=== PATIENT | female | born 1980 | race Caucasian/White ===

== ENCOUNTER → 2016-07-01 | Outpatient (CLI) | payer MEDICAID ==
--- NOTE | 2016-07-01 23:09 | MR ---
EXAMINATION TYPE: MR hip RT wo con DATE OF EXAM: 07/01/2016 4:38 PM COMPARISON: NONE HISTORY: Rt hip pain S/P fall 4 years ago Standard multiplanar, multisequence MRI departmental protocol Multiplanar, multisequence images of the were acquired. Diffusion weighted imaging was performed. FINDINGS: The proximal femurs are intact. Acetabula appear intact. I see no focal bony destructive pr ocess. There is no evidence of a pelvic mass. The hip joint spaces are fairly well-maintained. There is no sign of hip joint effusion. IMPRESSION: Negative MR scan of the right hip. No evidence of hip dysplasia or any significant arthritic disease. No sign of avascular necrosis.
--- NOTE | 2016-07-02 12:04 | ECHOF ---
Referral Reason:Dyspnea R06.00, M25.551 Pain in right hip joint MEASUREMENTS -------- HEIGHT: 177.8 cm WEIGHT: 72.6 kg BP: IVSd: 1.0 cm (0.6 - 1.1) LVIDd: 5.4 cm (3.9 - 5.3) LVPWd: 0.9 cm (0.6 - 1.1) IVSs: 1.3 cm LVIDs: 3.5 cm LVPWs: 1.6 cm Ao Diam: 3.0 cm (2.0 - 3.7) AV Cusp: 2.0 cm (1.5 - 2.6) LA Diam: 3.2 cm (2.7 - 3.8) MV EXCURSION: 18.395 mm (> 18.000) MV EF SLOPE: 118 mm/s (70 - 150) EPSS: 0.5 cm MV E Ernie: 0.94 m/s MV DecT: 240 ms MV A Ernie: 0.70 m/s MV E/A Ratio: 1.35 RAP: 5.00 mmHg RVSP: 11.84 mmHg FINDINGS -------- Sinus rhythm. This was a technically good study. Left ventricular wall thickness is normal. Overall left ventricular systolic function is normal with, an EF between 55 - 60 %. The right ventricle is normal in size and function. The left atrium is normal in size. The right atrium is normal in size. The aortic valve is trileaflet, and appears structurally normal. No aortic stenosis or regurgitation. Mild mitral regurgitation is present. Mild tricuspid regurgitation present. The right ventricular systolic pressure, as measured by Doppler, is 11.84mmHg. Pulmonic valve appears structurally normal. The aortic root, ascending aorta and aortic arch are normal. The pericardium is normal. CONCLUSIONS -------- 1. Sinus rhythm. 2. Mild tricuspid regurgitation present. 3. The right ventricular systolic pressure, as measured by Doppler, is 11.84mmHg. 4. Pulmonic valve appears structurally normal. 5. The aortic root, ascending aorta and aortic arch are normal. 6. The pericardium is normal. 7. This was a technically good study. 8. Left ventricular wall thickness is normal. 9. Overall left ventricular systolic function is normal with, an EF between 55 - 60 %. 10. The right ventricle is normal in size and function. 11. The left atrium is normal in size. 12. The right atrium is normal in size. 13. The aortic valve is trileaflet, and appears structurally normal. No aortic stenosis or regurgitation. 14. Mild mitral regurgitation is present. JAZZ SINGER: Jen Martinez RDCS
== END | disposition home or self-care (01) ==
LOC: RADECHMAIN 14:47
PROVIDERS: ATTEND Family Medicine
DX: I08.1 Rheumatic disorders of both mitral and tricuspid valves (principal); M25.551 Pain in right hip
CPT/HCPCS: 93306

== ENCOUNTER → 2016-11-30 | Outpatient (CLI) | payer MEDICAID ==
[2016-11-30 15:32] LABS: CH 31.8; CHCM 33.2; HCT 35.2 % (34.0-46.0); HDW 2.12; HGB 11.7 gm/dL (11.4-16.0); MCH 31.9 pg (25.0-35.0); MCHC 33.2 g/dL (31.0-37.0); Mean Platelet Volume 7.9; RBC 3.67 m/uL (3.80-5.40); RDW 13.4 % (11.5-15.5); WBC 5.8 k/uL (3.8-10.6)
[2016-11-30 15:51] LABS: ALT 43 U/L (9-52); AST 29 U/L (14-36); Alkaline Phosphatase 57 U/L (38-126); Anion Gap 10 mmol/L; Blood Urea Nitrogen 15 mg/dL (7-17); C Reactive Protein <5.0 mg/L (<10.0); Calcium 9.2 mg/dL (8.4-10.2); Carbon Dioxide 24 mmol/L (22-30); Chloride 106 mmol/L (98-107); Glucose 93 mg/dL (74-99); Non-African American GFR(MDRD) >60 (>60 ml/min/1.73 sqM); Potassium 4.1 mmol/L (3.5-5.1); Sodium 140 mmol/L (137-145); Total Bilirubin 0.4 mg/dL (0.2-1.3); Total Protein 7.6 g/dL (6.3-8.2)
[2016-11-30 17:37] LABS: Erythrocyte Sedimentation Rate 8 mm/hr (0-20)
[2016-12-01 14:35] LABS: Gliadin AB IgA, Deaminated 5 UNITS (<20); Gliadin AB IgG, Deaminated 3 UNITS (<20)
== END | disposition home or self-care (01) ==
LOC: LABWHC1 14:49
PROVIDERS: ATTEND Internal Medicine Gastroenterology
DX: R19.4 Change in bowel habit (principal)
CPT/HCPCS: 36415; 80053; 83516; 85027; 85652; 86140

== ENCOUNTER → 2018-06-21 | Outpatient (CLI) | payer MEDICAID ==
[2018-06-21 17:25] LABS: HCT 37.9 % (34.0-46.0); HGB 12.4 gm/dL (11.4-16.0); MCH 30.6 pg (25.0-35.0); MCHC 32.6 g/dL (31.0-37.0); MCV 93.9 fL (80.0-100.0); Mean Platelet Volume 7.2; Platelet Count 211 k/uL (150-450); RBC 4.04 m/uL (3.80-5.40); RDW 12.8 % (11.5-15.5); WBC 6.4 k/uL (3.8-10.6)
[2018-06-22 04:03] LABS: T4, Free (Free Thyroxine) 1.2 ng/dL (0.80-1.80)
== END | disposition home or self-care (01) ==
LOC: LABWHC1 16:48
PROVIDERS: ATTEND Obstetrics & Gynecology
DX: E04.9 Nontoxic goiter, unspecified (principal); R00.0 Tachycardia, unspecified
CPT/HCPCS: 36415; 84439; 84443; 85027

== ENCOUNTER → 2018-07-13 | Outpatient (CLI) | payer MEDICAID ==
--- NOTE | 2018-07-15 11:24 | MM ---
Reason for exam: screening (asymptomatic). Baseline mammogram. History: Took hormonal contraceptives for 1 year beginning at age 21. Physical Findings: Nurse did not find any significant physical abnormalities on exam. MG Screening Mammo w CAD Bilateral CC and MLO view(s) were taken. The breast tissue is heterogeneously dense. This may lower the sensitivity of mammography. No suspicious calcifications. No discrete abnormality. These results were verbally communicated with the patient and result sheet given to the patient on 07/13/18. ASSESSMENT: Negative, BI-RAD 1 RECOMMENDATION: Routine screening mammogram of both breasts at age 41.
== END | disposition home or self-care (01) ==
LOC: RADMAMWWP 15:35
PROVIDERS: ATTEND Obstetrics & Gynecology
DX: Z12.31 Encounter for screening mammogram for malignant neoplasm of breast (principal)
CPT/HCPCS: 77067

== ENCOUNTER → 2018-10-10 | Outpatient (CLI) | payer MEDICAID ==
--- NOTE | 2018-10-10 08:37 | US ---
EXAMINATION TYPE: US thyroid st tissue head/neck DATE OF EXAM: 10/10/2018 COMPARISON: US 2015 CLINICAL HISTORY: E04.1 Thyroid Nodule. Follow up thyroid nodules, history of FNA GLAND SIZE: Right Lobe: 5.3 x 2.1 x 2.3 cm Overall Parenchyma: homogenous Left Lobe: 7.3 x 1.6 x 1.8 cm Overall Parenchyma: homogeneous Isthmus Thickness: 0.4 cm NODULES RIGHT: # of nodules measured on right: 2 1. 1.7 X 1.3 x 1.4 cm hypoechoic mixed nodule at the mid pole with well-defined margins. This nodul e is wider than tall and shows intranodular vascularity. Prior size: 1.2 x 1.1 x 1.0 cm 2. 1.9 X 1.8 x 1.9 cm hypoechoic cystic nodule at the lower pole with well-defined margins. This nod ule is wider than tall and shows no intranodular vascularity. Prior size: 2.2 x 1.6 x 1.7 cm LEFT: # of nodules measured on left: 4 1. 1.7 X 1.3 x 1.7 cm hypoechoic mixed nodule at the lower pole with well-defined margins. This nod ule is wider than tall and shows intranodular vascularity. Prior size: 1.4 x 1.0 x 1.2 cm 2. 1.5 X 1.0 x 1.2 cm hypoechoic mixed nodule at the lower pole with well-defined margins. This nodu le is wider than tall and shows intranodular vascularity. Prior size: 1.0 x 0.5 x 1.0 cm 3. 1.4 X 0.5 x 1.0 cm hypoechoic mixed nodule at the lower pole with well-defined margins. This nodu le is wider than tall and shows intranodular vascularity. Prior size: 0.8 x 0.5 x 0.8 cm 4. 1.0 X 0.6 x 0.8 cm hypoechoic mixed nodule at the mid pole with well-defined margins. This nodule is wider than tall and shows no intranodular vascularity. Prior size: 0.8 x 0.5 x 0.8 cm ISTHMUS: # of nodules measured in the isthmus: 1 1. 1.7 X 0.6 x 1.5 cm hypoechoic mixed nodule with well-defined margins. This nodule is wider than tall and shows intranodular vascularity. Prior size: 1.0 x 0.4 x 0.8 cm Bilateral neck scanned, no evidence of lymphadenopathy. Enlarged thyroid with multiple bilateral nodules with largest described above. IMPRESSION: 1. Minimal interval growth of each of the left thyroid nodules the largest now measuring 1.7 cm. Find ings are compatible with a multinodular goiter. Nuclear medicine thyroid uptake scan could assess for cold nodule with attention to the left thyroid gland. 2. Although there is slight interval growth of the largest right lesion this appears cystic and benig n.
== END | disposition home or self-care (01) ==
LOC: RADUSWWP 06:56
PROVIDERS: ATTEND Otolaryngology
DX: E04.2 Nontoxic multinodular goiter (principal)
CPT/HCPCS: 76536

== ENCOUNTER → 2019-08-13 | Outpatient (CLI) | payer MEDICAID ==
--- NOTE | 2019-08-13 22:38 | MR ---
EXAMINATION TYPE: MR shoulder RT wo con DATE OF EXAM: 08/13/2019 COMPARISON: NONE HISTORY: Rt shoulder pain since Apr 2018, injured carrying a ladder TECHNIQUE: Multiplanar, multisequence imaging of the right shoulder is performed without contrast. FINDINGS: Rotator Cuff: Increased signal distal supraspinatus and to a much lesser degree anterior fibers of th e infraspinatus tendon. Subscapularis tendon is thickened with some increased signal. No tearing is i dentified. Rotator cuff muscle bulk is preserved. Acromioclavicular Joint: Moderate narrowing and capsular hypertrophy. No significant spurring. Underl eden fat plane maintained. Distal acromion morphology unremarkable. Glenohumeral Joint: Small to moderate joint effusion with mild to moderate narrowing. No significant spurring. Labrum: The labrum appears grossly intact given limitation of non-arthrogram study. Biceps Tendon: The long head of biceps is in normal location within bicipital groove. Bone marrow signal: No focal abnormal marrow signal is appreciated. Other: No additional significant abnormality is appreciated. IMPRESSION: Tendinopathy of rotator cuff tendons most prominent involving the supraspinatus tendon. N o significant tear. Mild to moderate degenerative changes as detailed above.
== END | disposition home or self-care (01) ==
LOC: RADMRIMAIN 16:36
PROVIDERS: ATTEND Orthopaedic Surgery Sports Medicine
DX: M75.101 Unspecified rotator cuff tear or rupture of right shoulder, not specified as traumatic (principal); M19.011 Primary osteoarthritis, right shoulder

== ENCOUNTER → 2019-12-27 | Outpatient (CLI) | payer MEDICAID ==
--- NOTE | 2019-12-28 02:39 | MR ---
EXAMINATION TYPE: MR ankle RT wo con DATE OF EXAM: 12/27/2019 COMPARISON: None HISTORY: Right Ankle/Foot Pain x 6 months. Pain is located in the area of the Upper part of the Heel. Multiplanar multiecho imaging of the right ankle was performed with no contrast. FINDINGS: There is mild to moderate ankle joint effusion. The Achilles tendon appears intact. Plantar fascia is intact. Ankle mortise is anatomic. The collateral ligaments appear intact. The medial and lateral fl exor tendons of the ankle appear intact. There are some patchy areas of increased signal in the calca neus without a fracture line seen. The subtalar joint is anatomic. Extensor tendons of the foot appea r intact. IMPRESSION: Ankle joint effusion consistent with nonspecific synovitis. There is very minimal edema in the calcan eus that could be stress related phenomenon. No stress fracture line seen.
== END | disposition home or self-care (01) ==
LOC: RADMRIMAIN 17:48
PROVIDERS: ATTEND Orthopaedic Surgery
DX: M25.471 Effusion, right ankle (principal); R60.0 Localized edema; M72.2 Plantar fascial fibromatosis; M84.374A Stress fracture, right foot, initial encounter for fracture; M65.871 Other synovitis and tenosynovitis, right ankle and foot; M25.571 Pain in right ankle and joints of right foot

== ENCOUNTER → 2020-07-21 | Outpatient (CLI) | payer MEDICAID ==
--- NOTE | 2020-07-22 09:35 | US ---
EXAMINATION TYPE: US thyroid st tissue head/neck DATE OF EXAM: 07/21/2020 COMPARISON: NONE CLINICAL HISTORY: E04.2 Nontoxic multinodular goiter. GLAND SIZE: Right Lobe: 4.9 x 1.6 x 1.8 cm Overall Parenchyma: homogenous Left Lobe: 6.6 x 1.3 x 1.9 cm Overall Parenchyma: homogeneous Isthmus Thickness: 1.1 cm NODULES RIGHT: # of nodules measured on right: 2 1. 2.1 X 0.9 x 1.2 cm mixed cystic and solid, isoechoic nodule, which is wider than tall, with smoo th margins, without echogenic foci. Prior size: 1.9 x 1.8 x 1.9 cm 2. 1.1 X 0.8 x 0.8 cm cystic or almost completely cystic, hypoechoic nodule, which is taller than w rick, with smooth margins, without echogenic foci. Prior size: 1.7 x 1.3 x 1.4 cm LEFT: # of nodules measured on left: 1. 1.0 X 0.7 x 1.0 cm mixed cystic and solid, anechoic nodule, which is wider than tall, with hugh h margins, without echogenic foci, upper mid. Prior size: 1.0 x 0.6 x 0.8 cm 2. 1.0 X 0.6 x 1.2 cm solid or almost completely solid, isoechoic nodule, which is wider than tall, with smooth margins, without echogenic foci, mid, medial. Prior size: 1.5 x 1.0 x 1.2 cm 3. 1.0 X 0.9 x 0.9 cm solid or almost completely solid, anechoic nodule, which is taller than wide, with ill-defined margins, without echogenic foci. Prior size: 1.4 x 0.5 x 1.2 cm 4. 1.2 X 0.7 x 0.9 cm solid or almost completely solid, isoechoic nodule, which is wider than tall, with smooth margins, without echogenic foci. Prior size: 1.4 x 0.5 x 1.0 cm ISTHMUS: # of nodules measured in the isthmus: 1. 2.4 X 1.0 x 2.0 cm mixed cystic and solid, hypoechoic nodule, which is wider than tall, with smo oth margins, without echogenic foci. Prior size: 1.7 x 1.6 x 1.5 cm Bilateral neck scanned, no evidence of lymphadenopathy. IMPRESSION: Mildly suspicious isthmus nodule, consider fine-needle aspiration, follow-up recommended 2017 ACR TI-RADS LEVEL: TR 3 *Highest TI-RADS level nodule reported
== END | disposition home or self-care (01) ==
LOC: RADUSWWP 15:03
PROVIDERS: ATTEND Family Medicine
DX: E04.2 Nontoxic multinodular goiter (principal)
CPT/HCPCS: 76536

== ENCOUNTER → 2020-07-24 | Outpatient (CLI) | payer MEDICAID ==
--- NOTE | 2020-07-24 12:36 | CT ---
EXAMINATION TYPE: CT brain wo con DATE OF EXAM: 07/24/2020 COMPARISON: CT IAC 2013 HISTORY: Left frontal/temporal headache x [address] DLP: 1108.4 mGycm. Automated Exposure Control for Dose Reduction was Utilized. TECHNIQUE: CT scan of the head is performed without contrast. FINDINGS: There is no acute intracranial hemorrhage, mass effect, or midline shift identified. The ventricles and sulci are within normal limits in size. Kendrick-white matter differentiation is maintai lou. No suspicious new opacification mastoid air cells. There is near complete opacification of the r ight maxillary sinus with some hyperdense material. Right sinus wall slightly thickened and sclerotic . The left side. There is additional patchy opacification of the right ethmoid sinus. There is new co mplete opacification right frontal sinus. Globes are intact bilaterally. IMPRESSION: No acute intracranial hemorrhage or midline shift is seen. Significant right-sided acute sinusitis, consider ENT referral.
== END | disposition home or self-care (01) ==
LOC: RADCTMAIN 11:07
PROVIDERS: ATTEND Physician Assistant
DX: R51.9 Headache, unspecified (principal); H53.9 Unspecified visual disturbance
CPT/HCPCS: 70450

== ENCOUNTER 2020-08-04 13:06 | Day surgery (SDC) | payer MEDICAID ==
--- NOTE | 2020-08-04 14:02 | US ---
ULTRASOUND GUIDED FNA THYROID BIOPSY: CLINICAL HISTORY: Request for Isthmus thyroid nodule FNA FINDINGS: The procedure was explained to the patient. The risks, complications, benefits and alternatives were discussed and any questions were answered. Informed consent was obtained. Patient was placed supin e on the ultrasound table and prepped and draped in the usual sterile fashion. Utilizing a 25 gauge needle, five passes were made into the isthmus thyroid nodule. Patient was stable throughout the procedure. Pathology is pending. All elements of maximal barrier technique were utilized. IMPRESSION: 1. Successful ultrasound guided FNA thyroid biopsy. Note is made the nodule was almost entirely cyst ic with very minimal soft tissue stranding or nodularity noted. This may lower diagnostic yield.
[2020-08-04 14:15] VITALS: RESP 18; TEMP 97.8
[2020-08-04 14:16] VITALS: BP 127/68; PULSE 61
== END 2020-08-04 14:10 | disposition home or self-care (01) ==
LOC: RADPROMAIN 13:06
PROVIDERS: ATTEND Physician Assistant
DX: E04.1 Nontoxic single thyroid nodule (principal)
CPT/HCPCS: 10005; 88173; 88305

== ENCOUNTER → 2021-09-24 | Outpatient (CLI) | payer MEDICAID ==
--- NOTE | 2021-09-27 11:43 | MM ---
Reason for exam: screening (asymptomatic). Last mammogram was performed 3 years and 2 months ago. History: Took hormonal contraceptives for 1 year beginning at age 21. Physical Findings: A clinical breast exam by your physician is recommended on an annual basis and results should be correlated with mammographic findings. MG Screening Mammo w CAD Bilateral CC and MLO view(s) were taken. Prior study comparison: July 13, 2018, bilateral MG screening mammo w CAD. There are scattered fibroglandular densities. There is no discrete abnormality. No significant changes when compared with prior studies. ASSESSMENT: Negative, BI-RAD 1 RECOMMENDATION: Routine screening mammogram of both breasts in 1 year.
== END | disposition home or self-care (01) ==
LOC: RADMAMWWP 13:44
PROVIDERS: ATTEND Obstetrics & Gynecology
DX: Z12.31 Encounter for screening mammogram for malignant neoplasm of breast (principal)
CPT/HCPCS: 77067

== ENCOUNTER → 2023-08-18 | Outpatient (CLI) | payer MEDICAID ==
--- NOTE | 2023-08-18 15:39 | US ---
EXAMINATION TYPE: US thyroid st tissue head/neck DATE OF EXAM: 08/18/2023 COMPARISON: NONE CLINICAL INDICATION: Female, 43 years old with history of E04.0 NONTOX DIFFUSE GOIT E04.1 NONTOX SING THY NO; f/u nodule GLAND SIZE: Right Lobe: 5.5x2.1x1.9 cm Overall Parenchyma: homogeneous Left Lobe: 6.8x1.6x2.3 cm Overall Parenchyma: homogeneous Isthmus Thickness: 0.4 cm NODULES RIGHT: # of nodules measured on right: 1 1. 2.3 X 1.8 x 1.6 cm, mid mid, mixed cystic and solid, isoechoic nodule, which is wider than tall, with smooth margins, without echogenic foci. Prior size: 2.3 x 1.3 x 1.5 cm LEFT: # of nodules measured on left: 3 1. 1.0 X 0.6 x 0.6 cm, mid mid, solid or almost completely solid, hypoechoic nodule, which is wider than tall, with ill-defined margins, without echogenic foci. 2. 1.5 X 1.0 x 1.6 cm, lower mid, solid or almost completely solid, hypoechoic nodule, which is wi araceli than tall, with lobulated or irregular margins, without echogenic foci. TR 4 Prior size: 1.4 x 0.1 x 0.9 cm 3. 1..6 X 1.8 x 1.9 cm, lower mid, mixed cystic and solid, hypoechoic nodule, which is wider than t all, with extra-thyroidal extension margins, without echogenic foci. ISTHMUS: # of nodules measured in the isthmus: 1 1. 1.7 X 0.6 x 1.2 cm solid or almost completely solid, isoechoic nodule, which is wider than tall, with ill-defined margins, without echogenic foci. Prior size: 1.2 x 0.5 x 0.5 cm Bilateral neck scanned, no evidence of lymphadenopathy. IMPRESSION: 1. Moderately suspicious nodule left lobe thyroid. Fine-needle aspiration recommended. 2017 ACR TI-RADS LEVEL: TR-RADS 4 - Moderately Suspicious: Follow if > 1 cm, FNA if > 1.5 cm *Highest TI-RADS level nodule reported
== END | disposition home or self-care (01) ==
LOC: RADUSWWP 14:44
PROVIDERS: ATTEND Family Medicine
DX: E04.1 Nontoxic single thyroid nodule (principal)
CPT/HCPCS: 76536

== ENCOUNTER 2023-10-13 08:49 | Day surgery (SDC) | payer MEDICAID ==
[2023-10-13 09:40] VITALS: RESP 16; TEMP 97.8
[2023-10-13 11:59] VITALS: BP 119/73; PULSE 62
--- NOTE | 2023-10-13 16:22 | US ---
EXAMINATION TYPE: US FNA thyroid first lesion, US FNA thyroid each add lesion DATE OF EXAM: 10/13/2023 11:28 AM REASON FOR EXAM: 43-year-old female NONTOXIC MULTINODULAR GOITER RADIOLOGIST: Dr. Vinayak Wright PROCEDURE: An initial scanning showed solid hypoechoic TR 4 nodules: * (1) 1.3 cm left mid pole and * (2) 1.8 cm at the left midpole. These are targeted for FNA. The procedure, along with the risks and complications were discussed with the patient. Patient agreed to proceed with the procedure. A consent was signed and placed in patient's chart. Maximum sterile barrier technique was utilized. Timeout was performed by myself. The left side of the neck was sterilely prepped and draped in the usual fashion. 3 milliliters of 1% Lidocaine were utili zed to anesthetize the superficial and deep soft tissues at each nodule in turn. Following that, under ultrasound guidance, 5 passes were made into each nodule with 5 cc syringe suct ion. After each pass, the sample was placed on a slide and then sent for pathology. Upon conclusion, hemostasis was achieved, and patient was discharged home in satisfactory condition. IMPRESSION: Successful FNA of 2 dominant TR for nodules in the left midpole (1.3 cm) and left lower pole (1.8 cm) . Pathology pending.
== END 2023-10-13 10:50 | disposition home or self-care (01) ==
LOC: RADPROMAIN 08:49
PROVIDERS: ATTEND Family Medicine
DX: E04.2 Nontoxic multinodular goiter (principal)
CPT/HCPCS: 10005; 10006; 88173; 88305

== ENCOUNTER → 2023-10-13 | Outpatient (CLI) | payer MEDICAID ==
--- NOTE | 2023-10-13 11:05 | US ---
EXAMINATION TYPE: US abdomen limited DATE OF EXAM: 10/13/2023 COMPARISON: NONE CLINICAL INDICATION: Female, 43 years old with history of R10.11 RIGHT UPPER QUADRANT PAIN; Intermitt ent RUQ pain x couple years TECHNIQUE: Multiple sonographic images of the right upper quadrant are obtained. FINDINGS: EXAM MEASUREMENTS: Liver Length: 18.3 cm Gallbladder Wall: 0.2 cm CBD: 0.4 cm Right Kidney: 10.7 x 3.9 x 4.5 cm Pancreas: wnl Liver: wnl Gallbladder: WNL Evidence for sonographic Richardson's sign: no CBD: wnl Right Kidney: wnl IMPRESSION: Mild hepatomegaly with no other significant abnormality seen. Gallbladder and biliary tree within nor mal limits.
== END | disposition home or self-care (01) ==
LOC: RADUSWWP 07:09
PROVIDERS: ATTEND Family Medicine
DX: R16.0 Hepatomegaly, not elsewhere classified (principal)
CPT/HCPCS: 76705